=== PATIENT | female | born 1935 | race Caucasian/White ===

== ENCOUNTER 2016-05-23 13:53 | Emergency (ER) | payer OTHER ==
[~2016-05-23] VITALS: Ht 157.5 cm; Wt 58.0 kg
[~2016-05-23 13:53] MED LIST: ALPR0.25 PO; ASPI81TA82 PO; COLE1TAB2 PO; DICY1TAB26 PO; GEMF600 PO; GNP1000T4 PO; TAB-TAB PO; TRAM50 PO; TYLE500T PO
[2016-05-23 13:55] VITALS: BP 177/95; PULSE 68; RESP 18; TEMP 97.8; O2SAT 91
[2016-05-23 14:18] VITALS: BP 193/99; PULSE 66; RESP 19; O2SAT 96
[2016-05-23] MEDS ORDERED: SODIUM CHLOR 0.9% 1000 ML INJ 1,000 ML IV SCH (14:31)
--- NOTE | 2016-05-23 14:34 | PD ---
HPI Chief Complaint: Abdominal Pain Time Seen by Provider: 14:08 Travel History International Travel<30 days: No Contact w/Intl Traveler<30days: No Traveled to known affect area: No History of Present Illness HPI 80-year-old female sent in by scarfer Dr. Flowers for evaluation of abdominal pain with suspicion for possible diverticulitis. The patient has had intermittent abdominal pain for the last 5 days which she describes as cramping/ pressure-like. She has tried Bentyl with some relief of symptoms. She has had diverticulitis in the past and this feels similar. She has had subjective fevers and chills. No nausea or vomiting. No diarrhea. No melena or hematochezia. History of appendectomy, right oophorectomy, cholecystectomy. Pain is currently 5 out of 10, slightly worse with movement and palpation. No urinary symptoms. She had a colonoscopy about 2 years ago which showed some colonic polyps. PFSH Past Medical History Arthritis: No Autoimmune Disease: No Anxiety: Yes Depression: No Heart Rhythm Problems: Yes Cancer: Yes (lung) Cardiac Catheterization: Yes Cardiovascular Problems: Yes (BRADYCARDIC, STENT,) High Cholesterol: Yes Chemotherapy: No Chest Pain: Yes Congestive Heart Failure: No Cerebrovascular Accident: No Diabetes: No Diminished Hearing: Yes (moe hearing aids) Diverticulitis: Yes Endocrine: No Gastrointestinal Disorders: Yes (diverticulitis , polypectomy) GERD: Yes Genitourinary: Yes Headaches: Yes Hiatal Hernia: No Heparin Induced Thrombocytopen: No Hypertension: Yes Immune Disorder: No Implanted Vascular Access Dvce: Yes Musculoskeletal: Yes Neurologic: Yes Psychiatric: Yes Reproductive: Yes Respiratory: Yes Migraines: Yes Radiation Therapy: Yes Seizures: No Ulcer: Yes Tetanus Vaccination: Unknown ?: Not Menopausal: Yes : 5 Para: 5 Miscarriage: 0 : 0 Ovarian Cysts: Yes Past Surgical History Abdominal Surgery: Yes AICD: No Arteriovenous Shunt: No Body Medical Devices: stent Cardiac Surgery: Yes (stent/2011) Cholecystectomy: Yes Coronary Artery Bypass Graft: No Coronary Stent: Yes (2011) Ear Surgery: No Endocrine Surgery: No Eye Surgery: No Genitourinary Surgery: Yes (gallbladder) Gynecologic Surgery: Yes (RT. OVARY REMOVED FOR RUPTURED CYST) Insulin Pump: No Joint Replacement: No Neurologic Surgery: No Oral Surgery: Yes (dentures top/bottom) Pacemaker: No Thoracic Surgery: Yes (rul thoracotomy 1986) Tonsillectomy: Yes Other Surgery: Yes Family History Family Myocardial Infarction: Yes (FATHER WITH ID ) Social History Alcohol Use: No Tobacco Use: No Substance Use: No Allergies-Medications (Allergen,Severity, Reaction): Coded Allergies: Cipro (Verified Allergy, Severe, Edema, 08/25/14) Claritin (Verified Allergy, Severe, Twitching, 08/25/14) anxiety Doxycycline (Verified Allergy, Severe, Diarrhea, 08/25/14) Lipitor (Verified Allergy, Severe, Restlessness, 08/25/14) Lisinopril (Verified Allergy, Severe, Edema, 08/25/14) Lovastatin (Verified Allergy, Severe, Confusion, 08/25/14) Sulfa (Verified Allergy, Severe, Edema, 08/25/14) Codeine (Verified Adverse Reaction, Unknown, Dyspepsia, 08/25/14) Reported Meds & Prescriptions Reported Meds & Active Scripts Active Reported Potassium 99 Mg Tab Alprazolam 0.25 Mg Tab 0.25 Mg PO Q8H PRN Ventolin Hfa 18 GM Inh (Albuterol Sulfate) 90 Mcg/Act Aer 2 Puff INH Q4-6H PRN Omeprazole 40 Mg Cap 40 Mg PO BID Bentyl (Dicyclomine HCl) 20 Mg Tab 20 Mg PO TID Lomotil (Diphenoxylate-Atropine) 2.5-0.025 Mg Tab 1 Tab PO Q6H PRN Vitamin C (Ascorbic Acid) 1,000 Mg Tab 1,000 Mg PO B-12 (Cyanocobalamin) 2,000 Mcg Tab 2,000 Mcg PO DAILY Colestipol (Colestipol HCl) 1 Gm Tab 1 Gm PO TID Gemfibrozil 600 Mg Tab 600 Mg PO BIDAC Take 30 minutes prior to breakfast and dinner. Aspirin 81 Mg Tabdr 81 Mg PO DAILY Review of Systems Except as stated in HPI: all other systems reviewed are Neg Physical Exam Narrative GENERAL: Well-developed, well-nourished, comfortable, no acute distress. SKIN: Warm and dry. HEAD: Atraumatic. Normocephalic. EYES: Pupils equal and round. No scleral icterus. No injection or drainage. ENT: Mucous membranes pink and moist. CARDIOVASCULAR: Regular rate and rhythm. RESPIRATORY: No accessory muscle use. Clear to auscultation. Breath sounds equal bilaterally. GASTROINTESTINAL: Abdomen soft, nondistended. Moderate diffuse tenderness without rebound or guarding. Normal bowel sounds. MUSCULOSKELETAL: No obvious deformities. No clubbing. No cyanosis. No edema. NEUROLOGICAL: Awake and alert. No obvious cranial nerve deficits. Motor grossly within normal limits. Normal speech. PSYCHIATRIC: Appropriate mood and affect; insight and judgment normal. Data Data Last Documented VS Vital Signs Date Time Temp Pulse Resp B/P Pulse Ox O2 Delivery O2 Flow Rate FiO2 05/23/16 16:33 73 17 186/88 95 Nasal Cannula 3 05/23/16 13:55 97.8 Orders Complete Blood Count With Diff (05/23/16 14:31) Comprehensive Metabolic Panel (05/23/16 14:31) Lipase (05/23/16 14:31) Lactic Acid (05/23/16 14:31) Prothrombin Time / Inr (Pt) (05/23/16 14:31) Act Partial Throm Time (Ptt) (05/23/16 14:31) Urinalysis - C+S If Indicated (05/23/16 14:31) Ct Abd/Pel W Iv Contrast(Rout) (05/23/16 14:31) Iv Access Insert/Monitor (05/23/16 14:31) Ecg Monitoring (05/23/16 14:31) Oximetry (05/23/16 14:31) Morphine Inj (Morphine Inj) (05/23/16 14:45) Sodium Chlor 0.9% 1000 Ml Inj (Ns 1000 M (05/23/16 14:31) Sodium Chloride 0.9% Flush (Ns Flush) (05/23/16 14:45) Urine Culture (05/23/16 14:45) Iohexol 350 Inj (Omnipaque 350 Inj) (05/23/16 15:53) Nitrofurantoin Monohyd Macrocr (Macrobid (05/23/16 16:30) Labs Laboratory Tests Test 05/23/16 05/23/16 14:38 14:45 White Blood Count 5.7 TH/MM3 Red Blood Count 4.73 MIL/MM3 Hemoglobin 14.2 GM/DL Hematocrit 40.6 % Mean Corpuscular Volume 86.0 FL Mean Corpuscular Hemoglobin 30.1 PG Mean Corpuscular Hemoglobin 35.1 % Concent Red Cell Distribution Width 14.3 % Platelet Count 182 TH/MM3 Mean Platelet Volume 8.8 FL Neutrophils (%) (Auto) 68.1 % Lymphocytes (%) (Auto) 16.1 % Monocytes (%) (Auto) 10.9 % Eosinophils (%) (Auto) 4.5 % Basophils (%) (Auto) 0.4 % Neutrophils # (Auto) 3.9 TH/MM3 Lymphocytes # (Auto) 0.9 TH/MM3 Monocytes # (Auto) 0.6 TH/MM3 Eosinophils # (Auto) 0.3 TH/MM3 Basophils # (Auto) 0.0 TH/MM3 CBC Comment DIFF FINAL Differential Comment Prothrombin Time 10.8 SEC Prothromb Time International 1.0 RATIO Ratio Activated Partial 28.8 SEC Thromboplast Time Sodium Level 141 MEQ/L Potassium Level 3.5 MEQ/L Chloride Level 106 MEQ/L Carbon Dioxide Level 28.1 MEQ/L Anion Gap 7 MEQ/L Blood Urea Nitrogen 16 MG/DL Creatinine 0.88 MG/DL Estimat Glomerular Filtration 62 ML/MIN Rate Random Glucose 91 MG/DL Lactic Acid Level 1.0 mmol/L Calcium Level 9.2 MG/DL Total Bilirubin 0.4 MG/DL Aspartate Amino Transf 16 U/L (AST/SGOT) Alanine Aminotransferase 21 U/L (ALT/SGPT) Alkaline Phosphatase 173 U/L Total Protein 7.8 GM/DL Albumin 4.2 GM/DL Lipase 146 U/L Urine Color COLORLESS Urine Turbidity CLEAR Urine pH 6.5 Urine Specific [place] 1.006 Urine Protein NEG mg/dL Urine Glucose (UA) NEG mg/dL Urine Ketones NEG mg/dL Urine Occult Blood NEG Urine Nitrite NEG Urine Bilirubin NEG Urine Urobilinogen LESS THAN 2.0 MG/DL Urine Leukocyte Esterase LARGE Urine RBC LESS THAN 1 /hpf Urine WBC 37 /hpf Urine Squamous Epithelial <1 /hpf Cells Urine Mucus FEW /lpf Microscopic Urinalysis Comment CULTURE INDICATED MDM Medical Decision Making Medical Screen Exam Complete: Yes Emergency Medical Condition: Yes Differential Diagnosis Diverticulitis, colitis, UTI, cystitis, mesenteric ischemia Narrative Course Vital signs show heart rate 68, blood pressure 177/95, pulse ox 96% on 3 L nasal cannula, oral temp of 97.8F. CBC is unremarkable. CMP is unremarkable. Lactic acid is 1.0. Lipase is 146. UA shows large leukocyte esterase, 37 wbc's, few mucus, negative nitrites, culture indicated. CT abdomen pelvis: CONCLUSION: Colonic diverticulosis. No definite acute CT findings in the abdomen or pelvis. The patient and the patient's daughter were made aware of all findings. Apparently the patient was admitted to [facility] last month with a UTI. She has several medication allergies, and required an intravenous antibiotic and was seen by infectious disease Dr. Rosales. I discussed the case with Dr. Rosales' s nurse practitioner Cassidy. At this point we will start the patient on Macrobid and monitor for possible reaction while emergency department. If the patient does not have a reaction, then she will be discharged home and will contact their office tomorrow. They will follow-up with her urine cultures. The patient endorses still having some abdominal cramping. Her abdominal exam is benign. Medical records from [facility] obtained and shows that the patient had a UTI that grew out Klebsiella pneumonia which was pansensitive, specifically is sensitive to Macrobid. The patient was given a dose of Macrobid here in the emergency department and observed for about 30 minutes without having an adverse reaction. I will discharge her home with this medication. She is stable for discharge home. She was informed on when to return to the emergency department. Both the patient and the patient's daughter verbalize understanding and agreement with plan. Diagnosis Primary Impression: UTI (urinary tract infection) Qualified Code: N39.0 - Urinary tract infection without hematuria, site unspecified Additional Impression: Abdominal pain Qualified Code: R10.9 - Abdominal pain, unspecified location Referrals: Chrissy Rosales MD 1 day Additional Instructions: Follow-up with Dr. Rosales tomorrow. Take antibiotic as prescribed. Stay hydrated with plenty of fluids. Return to the emergency department for worsening symptoms or any other concerns. Scripts Epinephrine Inj (Epipen 2-Howard Inj)0.3 Mg/0.3 Ml Pfpen0.3 Mg IM ONCE PRN ( ALLERGIC REACTION) #1 PACK Ref 0 Prov:Del Hernandez MD 05/23/16 Nitrofurantoin Monohydrate Macrocrystals (Macrobid)100 Mg [id number] Mg PO BID 7 Days Ref 0 Prov:Del Hernandez MD 05/23/16 Disposition: 01 DISCHARGE HOME Condition: Stable Del Hernandez MD May 23, 2016 14:34
[2016-05-23] MEDS ORDERED: MORPHINE SULFATE 4 MG/ML INJ IV PUSH ONE (14:45)
[2016-05-23] MEDS ORDERED: SODIUM CHLORIDE 0.9% FLUSH 5 ML FLUSH IVF PRN (14:45)
[2016-05-23 14:48] VITALS: O2SAT 96
[2016-05-23 15:05] LABS: BLOOD, URINE NEG (NEG); COMMENT (UR) CULTURE INDICATED; CULTURE IF INDICATED CULTURE INDICATED; GLUCOSE,URINE NEG (NEG); KETONE, URINE NEG (NEG); MUCUS URINE FEW /lpf (OCC); NITRITE,URINE NEG (NEG); PH, URINE 6.5 (5.0-8.5); SQUAMOUS EPITHELIAL CELL URINE <1 /hpf (0-5); URINE COLOR COLORLESS (YELLW/STRAW)
[2016-05-23] MEDS ORDERED: ASPI1TAB69 PO (15:13)
[2016-05-23] MEDS ORDERED: OMEP40CA2 PO (15:13)
[2016-05-23] MEDS ORDERED: GEMF600T PO (15:13)
[2016-05-23] MEDS ORDERED: ALPR0.25 PO (15:13)
[2016-05-23] MEDS ORDERED: B-122000 PO (15:13)
[2016-05-23] MEDS ORDERED: BENT20TA PO (15:13)
[2016-05-23] MEDS ORDERED: VITA10007 PO (15:13)
[2016-05-23] MEDS ORDERED: LOMO2.5T PO (15:13)
[2016-05-23] MEDS ORDERED: VENTAER INH (15:13)
[2016-05-23] MEDS ORDERED: COLE1TAB2 PO (15:13)
[2016-05-23 15:15] LABS: APTT (PATIENT) 28.8 SEC (24.3-30.1); AUTOMATED NEUTROPHIL # 3.9 TH/MM3 (1.8-7.7); BASOPHIL % 0.4 % (0.0-2.0); EOSINOPHIL # 0.3 TH/MM3 (0-0.4); EOSINOPHIL % 4.5 % (0.0-4.0); HEMATOCRIT 40.6 % (35.0-46.0); HEMO FLAGS DIFF FINAL; LYMPH % 16.1 % (9.0-44.0); LYMPHOCYTE # 0.9 TH/MM3 (1.0-4.8); MEAN CORPUSCULAR HEMOGLOBIN 30.1 PG (27.0-34.0); MEAN CORPUSCULAR HGB CONC 35.1 % (32.0-36.0); MONO % 10.9 % (0.0-8.0); NEUT % 68.1 % (16.0-70.0); PLATELET COUNT 182 TH/MM3 (150-450); PROTHROMBIN TIME - PATIENT 10.8 SEC (9.8-11.6); RED BLOOD COUNT 4.73 MIL/MM3 (4.00-5.30); RED CELL DISTRIBUTION WIDTH 14.3 % (11.6-17.2); WHITE BLOOD COUNT 5.7 TH/MM3 (4.0-11.0)
[2016-05-23 15:17] VITALS: BP 164/91; PULSE 62; RESP 18; O2SAT 96
[2016-05-23 15:21] LABS: ALT (GPT) 21 U/L (10-53); ANION GAP 7 MEQ/L (5-15); AST (GOT) 16 U/L (15-37); BICARBONATE 28.1 MEQ/L (21.0-32.0); BLOOD UREA NITROGEN 16 MG/DL (7-18); CHLORIDE 106 MEQ/L (98-107); GLOMERULAR FILTRATION RATE 62 ML/MIN (>89); POTASSIUM 3.5 MEQ/L (3.5-5.1); SODIUM (NA) 141 MEQ/L (136-145)
[2016-05-23 15:23] LABS: ALKALINE PHOSPHATASE 173 U/L (45-117); TOTAL BILIRUBIN ADULT 0.4 MG/DL (0.2-1.0)
[2016-05-23] MEDS ORDERED: POTA99TA (15:23)
[2016-05-23] MEDS ORDERED: IOHEXOL 350 MG/ML 10 ML VIAL (for RAD DIAG) IV ONE (15:53)
--- NOTE | 2016-05-23 16:12 | RADRPT ---
EXAM DATE/TIME: 05/23/2016 15:52 [facility] COMPARISON: CT ABDOMEN & PELVIS W CONTRAST, November 29, 2012, 19:27. INDICATIONS : Abdominal pain with cramping for 5 days. IV CONTRAST: 61 cc Omnipaque 350 (iohexol) IV ORAL CONTRAST: No oral contrast ingested. RADIATION DOSE: 5.39 CTDIvol (mGy) MEDICAL HISTORY : Cardiovascular disease. Hypertension. Diverticulitis.GERD SURGICAL HISTORY : Coronary artery stent. Cholecystectomy.Appendectomy.Right oophorectomy; RUL thoracotomy ENCOUNTER: Initial ACUITY: 4 - 6 days PAIN SCALE: 6/10 LOCATION: Abdomen/pelvis TECHNIQUE: Volumetric scanning of the abdomen and pelvis was performed. Using automated exposure control and ad justment of the mA and/or kV according to patient size, radiation dose was kept as low as reasonably achievable to obtain optimal diagnostic quality images. FINDINGS: LOWER LUNGS: The visualized lower lungs are clear. LIVER: Homogeneous density without lesion. There is no dilation of the biliary tree. Gallbladder surgically absent.. SPLEEN: Normal size without lesion. PANCREAS: Within normal limits. KIDNEYS: Normal in size and shape. There is no mass, stone or hydronephrosis. ADRENAL GLANDS: Within normal limits. VASCULAR: Pronounced atherosclerotic changes involving the abdominal aorta and branch vessels. No evidence of a neurysm BOWEL/MESENTERY: Pancolonic diverticulosis. No abnormal dilatation, wall thickening or focal inflammatory changes.. ABDOMINAL WALL: Within normal limits. RETROPERITONEUM: There is no lymphadenopathy. BLADDER: No wall thickening or mass. REPRODUCTIVE: Within normal limits. INGUINAL: There is no lymphadenopathy or hernia. MUSCULOSKELETAL: Within normal limits for patient age. CONCLUSION: Colonic diverticulosis. No definite acute CT findings in the abdomen or pelvis. Willis Manjarrez MD on May 23, 2016 at 16:06 Board Certified Radiologist. This report was verified electronically.
[2016-05-23] MEDS ORDERED: NITROFURANTOIN MONOHYD MACROCR 100 MG CAP PO ONE (16:30)
[2016-05-23 16:33] VITALS: BP 186/88; PULSE 73; RESP 17; O2SAT 95
[2016-05-23] MEDS ORDERED: EPIP0.3I IM (17:08)
[2016-05-23] MEDS ORDERED: MACR100C2 PO (17:08)
[2016-05-23 17:16] VITALS: RESP 17
== END 2016-05-23 18:00 | disposition home or self-care (01) ==
LOC: NEPA 13:53
DX: N39.0 Urinary tract infection, site not specified (principal); R10.9 Unspecified abdominal pain; E78.00 Pure hypercholesterolemia, unspecified; K21.9 Gastro-esophageal reflux disease without esophagitis; I10 Essential (primary) hypertension; K57.30 Diverticulosis of large intestine without perforation or abscess without bleeding; B96.1 Klebsiella pneumoniae [K. pneumoniae] as the cause of diseases classified elsewhere
CPT/HCPCS: 74177; 80053; 81001; 83605; 83690; 85025; 85610; 85730; 87077; 87086; 87186; 96361; 96374; 99284; J2270; J7030; Q9967

== ENCOUNTER → 2016-08-06 | Outpatient (CLI) | payer OTHER ==
[~2016-08-06] MED LIST changes: +ASPI1TAB69 PO; -ASPI81TA82 PO; +B-122000 PO; +BENT20TA PO; -DICY1TAB26 PO; +EPIP0.3I IM; -GEMF600 PO; +GEMF600T PO; -GNP1000T4 PO; +LOMO2.5T PO; +MACR100C2 PO; +OMEP40CA2 PO; +POTA99TA; -TAB-TAB PO; -TRAM50 PO; -TYLE500T PO; +VENTAER INH; +VITA10007 PO
--- NOTE | 2016-08-14 11:52 | RSPPFT ---
DATE OF PROCEDURE: 08/06/16 COMMENTS: VOLUMES DYNAMIC: FVC normal; FEV1 mildly reduced. STATIC: RV, TLC moderately reduced; FRC normal. FLOWS: FEV1% moderately reduced; FEF 25-75 severely reduced. DIFFUSION: Patient unable to perform. FLOW VOLUME LOOP: Very erratic tracing. 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 Static lung volumes may not be accurate due to the fact that the patient had to wear oxygen and could not wear a nose clip. Diffusion could not be performed. Patient's O2 saturation at rest was 85%.
== END ==
LOC: PHRSP 10:20
PROVIDERS: ATTEND Internal Medicine
DX: J44.9 Chronic obstructive pulmonary disease, unspecified (principal)
CPT/HCPCS: 94060; 94620; 94726; 94729